=== PATIENT | female | born 1970 | race Caucasian/White ===

== ENCOUNTER 2023-04-29 20:58 | Emergency (ER) | payer OTHER ==
[~2023-04-29] VITALS: Ht 167.6 cm; Wt 77.1 kg
[2023-04-29] MEDS ORDERED: HYDROCODONE/APAP 10/325MG TABLET ONE (22:32)
[2023-04-29] MEDS: HYDROCODONE/APAP 7.5/325MG 1 EACH TABLET PO ONE (22:36)
[2023-04-29] MEDS: HYDROCODONE/APAP 10/325MG TABLET PO ONE (22:43)
[2023-04-30 00:08] VITALS: BP 112/83; TEMP 98.3; O2SAT 99
[2023-04-30] MEDS ORDERED: TRAM50TA2 PO (00:10)
== END 2023-04-30 00:26 | disposition home or self-care (01) ==
LOC: ER 21:01
DX: S82.851A Displaced trimalleolar fracture of right lower leg, initial encounter for closed fracture (principal); F17.200 Nicotine dependence, unspecified, uncomplicated; Z79.899 Other long term (current) drug therapy; W18.39XA Other fall on same level, initial encounter; Y93.89 Activity, other specified; Y92.89 Other specified places as the place of occurrence of the external cause; Y99.8 Other external cause status
CPT/HCPCS: 73590-TC